=== PATIENT | male | born 1960 | race Caucasian/White ===

== ENCOUNTER → 2022-12-29 09:42 | Outpatient (CLI) | payer BC, SELFPAY ==
[2022-12-29 19:57] LABS: Add Manual Diff / Slide Review NO; Basophils Absolute Auto 0 /uL (0-100); Basophils Percent Auto 0.8 % (0-2); Eosinophils Absolute Auto 100 /uL (0-450); Eosinophils Percent Auto 2.3 % (2-4); Hemoglobin 15.1 g/dL (13.5-17.5); Lymphocytes Absolute Auto 2300 /uL (1100-4500); Lymphocytes Percent Auto 39.5 % (25-40); Mean Corpuscular HGB Conc 34.4 % (30-36); Mean Corpuscular Hemoglobin 33.2 PG (26-34); Mean Corpuscular Volume 96.4 fL (80-100); Monocytes Absolute Auto 400 /uL (0-900); Monocytes Percent Auto 7.4 % (3-14); Neutrophils Absolute Auto 3000 /uL (1500-7000); Platelet Count 267 X10^3/uL (150-400); Red Blood Cell Count 4.56 X10^6/uL (4.5-5.9); Red Cell Distribution Width 13.7 % (11.6-14.8); White Blood Cell Count 5.9 X10^3/uL (4.5-11.0)
[2022-12-29 19:59] LABS: Alanine Aminotransferase 16 IU/L (<50); Albumin 4.3 g/dL (3.5-5.0); Albumin Globulin Ratio 1.3 (1.0-2.8); Alkaline Phosphatase 68 U/L (38-126); Aspartate Aminotransferase 25 IU/L (17-59); BUN Creatinine Ratio 13.2 (6-22); Bilirubin Total 0.8 mg/dL (0.2-1.3); Blood Urea Nitrogen 14 mg/dL (9-20); Calcium 9.4 mg/dL (8.4-10.2); Carbon Dioxide 26 mmol/L (22-32); Chloride 103 mmol/L (98-107); Cholesterol 215 mg/dL (140-199); Estimated Glomerular Filt Rate > 60 mL/min (>60); Globulin 3.4 g/dL (1.7-4.1); Glucose 94 mg/dL (80-110); HDL Cholesterol 59 mg/dL (40-60); HEMOLYSIS < 15 (0-50); LDL Cholesterol Calculated 123 mg/dL (<100); Potassium 5.2 mmol/L (3.4-5.1); Sodium 138 mmol/L (137-145); Total Protein 7.7 g/dL (6.3-8.2); Triglycerides 163 mg/dL (35-150)
[2022-12-29 20:29] LABS: Prostate Specific Antigen Scrn 0.612 ng/mL (0.1-4.0)
== END ==
PROVIDERS: PCP Family Medicine; Visit Provider Family Medicine
DX: Z12.5 Encounter for screening for malignant neoplasm of prostate (principal); Z13.1 Encounter for screening for diabetes mellitus; Z13.6 Encounter for screening for cardiovascular disorders; Z78.9 Other specified health status
CPT/HCPCS: 80053; 80061; 85025; G0103

== ENCOUNTER 2023-04-28 12:01 | Day surgery (SDC) | payer OTHER, SELFPAY ==
[2023-04-28] MEDS: LACTATED RINGERS 1,000 ML 84 ML IV (12:12)
[2023-04-28 12:22] VITALS: BP 122/77; PULSE 70; RESP 12; TEMP 36.1; O2SAT 96; BMI 22.1
--- NOTE | 2023-04-28 12:42 | PM.HP.1 ---
History of Present Illness History of Present Illness Date Patient Seen: 04/28/23 Chief complaint: Colonoscopy Narrative: History of colon polyp 10 or more years ago. 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 chew tobacco for 45 years - does not want to quit pt does know risk of cancer and admits it is an addiction has tried to quit. motivation to quit disappear s after a few days etoh: 2-3 beers most nights no surgeries colonoscopy: at 51 yo -- 1 polyp. 10 yrs. 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 was bought out - [employer]. neck fracture at 22 yo. occasional neck pain FHX: denies heart attack, stroke, DM2, cancer. jsm 11/2022 Meds Home Medications and Allergies Home Medications Medication Instructions Recorded Confirmed Type diphenhydramine HCl 50 mg capsule 50 mg PO BEDTIME 12/15/22 04/28/23 History (NightTime Sleep Aid (diphenhydramine)) multivitamin 1 tab PO DAILY 12/15/22 04/28/23 History Allergies Allergy/AdvReac Type Severity Reaction Status Date / Time No Known Drug Allergies Allergy Verified 04/28/23 12:33 Exam Vital Signs (past 8 hours): - 04/28/23 12:22 Temperature 97.0 F L Pulse Rate 70 Respiratory Rate 12 Blood Pressure 122/77 Pulse Oximetry 96 Oxygen Delivery Method Room Air Oxygen Delivery Method Room Air Narrative Exam Narrative: Oropharynx free of lesions Chest clear to auscultation percussion Cardiac exam reveals no S3 or murmur Assessment & Plan Assessment & Plan narrative: Personal history of unknown pathology of the polyps over 10 years ago need for follow-up colonoscopy. Risks, benefits, alternatives have been explained.
--- NOTE | 2023-04-28 12:43 | PM.OP.COLON ---
Operative Date/Time/Diagnoses Date of procedure: 04/28/23 Pre-op diagnosis: History of distant colon polyps. Last colonoscopy 10 years ago Procedure & Clinicians Study performed: Colonoscopy Indications: Screening and history of polyps Surgeon: Sharonda Espinal Procedure Notes Procedure in detail: After informed consent was obtained the patient was placed in left lateral decubitus position. The video colonoscope was introduced the rectum slowly advanced to the cecum. Preparation was good. On slow withdrawal mucosa was carefully examined. The scope was removed. The patient tolerated procedure well. Blood loss none Complications none Sedation mac Findings 1. Moderate pancolonic diverticulosis 2. Otherwise negative colonoscopy to cecum I do not think patient needs follow-up colonoscopy for 7-10 years.
[2023-04-28 13:16] VITALS: BP 107/71; PULSE 69; RESP 14; TEMP 37.2; O2SAT 95
[2023-04-28 13:22] VITALS: BP 97/68; PULSE 68; PULSE 69; RESP 12; RESP 16; TEMP 37.2; O2SAT 94; O2SAT 95
[2023-04-28 13:27] VITALS: BP 97/66; PULSE 63; RESP 16; O2SAT 96
[2023-04-28 13:32] VITALS: BP 107/80; PULSE 62; RESP 16; O2SAT 97
[2023-04-28 14:44] VITALS: BP 111/64; PULSE 72; RESP 16; O2SAT 98
== END 2023-04-28 14:00 | disposition home or self-care (01) ==
PROVIDERS: PCP Family Medicine; Referring Provider Internal Medicine Gastroenterology; Visit Provider Internal Medicine Gastroenterology
PROC: 0DJD8ZZ Inspection of Lower Intestinal Tract, Via Natural or Artificial Opening Endoscopic (ICD-10-PCS; CPT 45378; principal; 2023-04-28 13:00)
DX: Z12.11 Encounter for screening for malignant neoplasm of colon (principal); Z86.010 Personal history of colon polyps; K57.30 Diverticulosis of large intestine without perforation or abscess without bleeding
CPT/HCPCS: 45378; J2704